=== PATIENT | female | born 1975 ===

== ENCOUNTER → 2016-12-17 | Outpatient (CLI) | payer OTHER ==
--- NOTE | 2016-12-17 17:16 | MAMMOGRAPHY REPORT ---
ULTRASOUND OF BOTH BREASTS: 12/17/2016 CLINICAL HISTORY: The patient presents for screening bilateral breast ultrasound given dense breasts mammographically. The patient reports no new lumps or other complaints. COMPARISON: Comparison is made to exam dated: 02/12/2016 mammogram - [facility]. TECHNIQUE: Real-time ultrasound of both breasts was performed. FINDINGS: Real-time, high-resolution ultrasound was performed of bilateral breasts including all 4 q uadrants and subareolar regions. Numerous anechoic circumscribed masses are seen throughout both niharika asts, consistent with cysts. No suspicious solid masses or other suspicious sonographic abnormalitie s are evident. IMPRESSION: ACR BI-RADS CATEGORY 2: BENIGN There is no sonographic evidence of malignancy in either breast. Return to annual mammogram screening schedule is recommended, due February 2017. The patient was verbally notified of the results. Nai Villanueva M.D. ah/:12/17/2016 15:08:43 Social Work Job Titles: Nai Villanueva MD, [facility] letter sent: Normal 1/2 BI-RADS Code: ACR BI-RADS Category 2: Benign
== END | disposition home or self-care (01) ==
LOC: C.MAMM 13:48
PROVIDERS: ATTEND Nurse Practitioner Women's Health
DX: N60.11 Diffuse cystic mastopathy of right breast (principal); N60.12 Diffuse cystic mastopathy of left breast

== ENCOUNTER → 2017-04-24 | Outpatient (CLI) | payer OTHER | END | disposition home or self-care (01) | LOC: C.MAMM 09:24 | DX: Z12.31 Encounter for screening mammogram for malignant neoplasm of breast (principal) ==